=== PATIENT | male | born 1980 | race Caucasian/White ===

== ENCOUNTER 2024-02-01 17:53 | Emergency (ER) | payer BC, OTHER ==
[2024-02-01] MEDS: Lidocaine 1% PF 2 ML SDV INJECT ONE (20:25)
[2024-02-01] MEDS: Diphtheria,Pertussis(Acell),Tetanus Vaccine 0.5 ML Syringe IM ONE (20:25)
[2024-02-01] MEDS: ceFAZolin 1 GM Vial IM ONE (20:59)
[2024-02-01] MEDS: Bacitracin Oint 1 GM U/D Packet TOP ONE (20:59)
[2024-02-01 21:31] VITALS: BP 133/89; PULSE 72
== END 2024-02-01 21:35 | disposition home or self-care (01) ==
LOC: MW.ED 17:53
DX: S62.637B Displaced fracture of distal phalanx of left little finger, initial encounter for open fracture (principal); Z23 Encounter for immunization; V28.49XA Other motorcycle driver injured in noncollision transport accident in traffic accident, initial encounter; Y93.55 Activity, bike riding; Z79.899 Other long term (current) drug therapy
CPT/HCPCS: 12001; 73130; 90471; 90715; 96372; 99284; J0690; J3490